=== PATIENT | male | born 1965 | race Caucasian/White ===

== ENCOUNTER 2018-06-03 14:55 | Emergency (ER) | payer OTHER, SELFPAY ==
[2018-06-03 14:55] VITALS: BP 149/93; PULSE 101; RESP 16; TEMP 36.5; O2SAT 99; BMI 36.2
--- NOTE | 2018-06-03 15:13 | ED.DCSUM_ITS ---
- ER Visit Summary Date of Service: 06/03/18 Chief Complaint: Abdominal pain with rectal bleeding History of Present Illness: The patient is a 52 M history of [place] syndrome and hypertension. Prior polypectomy. No recent colonoscopy. Patient states for a month he has had crampy and sharp abdominal pain intermittent. With rectal bleeding at times with clots. He denies being on any type of blood thinner. He denies ever having bleeding like this before. His any vomiting. He said subjectively he is felt warm. Physical Examination: Well-appearing middle-age male. No acute distress. Vital signs are stable. Afebrile. H EENT exam unremarkable. Neck nontender. Lungs clear to auscultation bilaterally. Heart regular rhythm no murmur rate about 100. Abdomen is soft. Nondistended. Normal bowel sounds. He does have left- sided abdominal tenderness. There is no rebound or guarding. No rigidity. No signs of obstruction. No hernias or masses. Both the right upper right lower quadrants are unremarkable. He is moving all 4 extremities. Neurologically is awake and alert with no focal motor deficits. Test Results: Patient is an tired laboratory workup was unremarkable. White count of 7. Hemoglobin 15. Chemistries normal normal gap and creatinine. Liver enzymes normal lipase normal PT/INR normal lactate normal CT abdomen pelvis with IV contrast only was unremarkable. There was a small amount of sigmoid diverticulosis. No acute signs of diverticulitis. Bowel and appendix appeared normal and no other acute abnormalities. Read by the radiologist. Reviewed by me. Emergency Department Course and Treatment: Ongoing GI workup. Due to the abdominal pain he will obtain a CT of the abdomen and pelvis. He will receive IV morphine and Zofran. On repeat exam at 1645 patient is doing well. He is resting comfortably. He and I went over all his test results when they all return. He is comfortable being discharged home with outpatient follow-up. He knows to return if he is feeling worse. I did stress to him that if he has rectal bleeding he should follow-up and get an outpatient colonoscopy. Treatment Plan: Follow-up with his PCP. Disposition: Discharge Impression: Acute abdominal pain with rectal bleeding of uncertain etiology This note was generated with [employer] software. It may contain incorrect words, spelling, and punctuation that were not noted in review of the chart prior to signing ED Disposition - Plan for ED Patient: Disposition: Home or Assisted Living Chief Complaint: Abd Pain Instructions: ED Abdominal Pain Unkn Cause, ED Hematochezia Stable Referrals: Hernan Rondon MD [Primary Care Provider] - Additional Instructions: Labs were normal today. Follow-up with your doctor.
--- NOTE | 2018-06-03 15:13 | CT_ITS ---
STUDY: CT ABDOMEN AND PELVIS WITH CONTRAST REASON FOR EXAM: Male, 52 years old. Left-sided abdominal pain, rectal bleeding for one month. RADIATION DOSAGE (If Supplied By Facility): CTDIvol = ( 14.50 ) mGy, DLP = ( 1100.88 ) mGycm TECHNIQUE: Transaxial images were obtained from the dome of the diaphragm to the symphysis pubis without oral contrast. 100CC ml of Isovue 300 contrast was administered. Sagittal and coronal images were reconstructed. Individualized dose optimization techniques were used for this CT. COMPARISON: None. FINDINGS: Body wall soft tissues: Tiny fat filled umbilical hernia. Osseous structures: Mild spondylosis and mild scoliosis. Inferior chest: Clear lung bases, normal distal esophagus, normal cardiac base. Hepatobiliary: Normal. Pancreas: No acute process. Spleen: Normal. Adrenal glands: Normal. Urogenital: Normal kidneys, collecting systems, ureters, urinary bladder, prostate and seminal vesicles. Pelvic floor and sidewalls and retroperitoneum: No mass or adenopathy. Vasculature: Minimal atherosclerosis. Stomach: No acute process. Small bowel and mesentery: No acute process. Large bowel: Normal appendix. There is minimal diverticulosis of the sigmoid colon with no evidence of diverticulitis. Normal rectum. Free fluid or free air: None. CT/Abdomen/Pelvis W IV Cont ONLY IMPRESSION: No acute abdominopelvic process is evident. There is sigmoid diverticulosis, mild, with no evidence of acute diverticulitis. Electronically Signed: Loyd Cherry, at 16:36 EDT Tel , Service support ,
[2018-06-03] MEDS: Ondansetron 4 MG/2 ML Vial IV (15:30)
[2018-06-03] MEDS: Morphine 4 MG/ML Syringe 6 MG IV (15:30)
[2018-06-03] MEDS: 0.9% Normal Saline 1,000 ML 125 ML IV (15:30)
[2018-06-03 15:48] LABS: Absolute Neutrophil Count 4.5 X10^3/uL (2.0-7.7); Basophil# 0.07 X10^3/uL; Eosinophil# 0.27 X10^3/uL; Eosinophils% 3.8 % (0-5); Hematocrit 47.8 % (40-54); Hemoglobin 15.6 g/dl (13.0-16.5); Lymphocyte % 25.6 % (19-41); Mean Corp Hgb Conc 32.6 g/gl (32-36); Mean Corpuscular Hgb 29.7 pg (27.0-32.0); Mean Corpuscular Volume 90.9 fL (80-94); Mean Platelet Vol. 9.2 fl (6.2-12.0); Monocyte# 0.34 X10^3/uL; Monocyte% 4.8 % (0-10); Neutrophil # 4.52 X10^3/uL (2.7-7.7); Neutrophil % 64.5 % (47-70); Platelet Count 188 K/mm3 (150-450); RBC Distribution Width CV 13.5 % (11.6-14.6); RBC Distribution Width SD 44.1 fl (35.1-43.9); Red Blood Count 5.26 M/mm3 (4.6-6.2)
[2018-06-03 15:49] LABS: POSITIVE COUNT NO; POSITIVE DIFFERENTIAL NO; POSITIVE MORPHOLOGY NO
[2018-06-03 15:58] LABS: AST(SGOT) 15 U/L (15-37); Alanine Aminotransfer ALT/SGPT 29 U/L (16-61); Albumin, Serum 3.8 g/dL (3.2-5.0); Alkaline Phosphatase 100 U/L (45-117); Anion Gap 4 (5-15); BUN 14 mg/dL (7-18); BUN/Creat Ratio 14.3 RATIO (10-20); Bilirubin, Direct 0.09 mg/dL (0.00-0.30); Calcium,Total 8.8 mg/dL (8.5-10.1); Chloride 104 mmol/L (98-107); Creatinine, Serum 0.98 mg/dL (0.70-1.30); EST Glomerular Filtration Rate 86 mL/min (>60); Est Glom Filt Rate - Afr Amer 104 mL/min (>60); Estimated Creatinine Clearance 94.98 ml/min; Globulin 3.9 g/dL (2.2-4.2); Glucose 96 mg/dL (74-106); Lipase 269 U/L (73-393); Potassium 4.2 mmol/L (3.5-5.1); Protein, Total 7.7 g/dL (6.4-8.2); Sodium Level 139 mmol/L (136-145)
[2018-06-03 16:01] LABS: International Normalized Ratio 0.9; Prothrombin Time (Protime)PT. 12.3 SECONDS (11.7-14.9)
[2018-06-03 16:03] LABS: Lactic Acid 1.3 mmol/L (0.4-2.0)
--- NOTE | 2018-06-03 16:34 | ED.DEP ---
ED Disposition - Plan for ED Patient: Disposition: Home or Assisted Living Chief Complaint: Abd Pain Instructions: ED Abdominal Pain Unkn Cause, ED Hematochezia Stable Referrals: Hernan Rondon MD [Primary Care Provider] - Additional Instructions: Labs were normal today. Follow-up with your doctor. May need an outpatient colonoscopy. Return to the ER if feeling a lot worse.
[2018-06-03 17:09] VITALS: BP 134/46; PULSE 75; PULSE 82; RESP 16; O2SAT 98
== END 2018-06-03 17:10 | disposition home or self-care (01) ==
PROVIDERS: Emergency Provider Emergency Medicine; Family Provider Family Medicine; PCP Family Medicine
DX: R10.9 Unspecified abdominal pain (principal); K62.5 Hemorrhage of anus and rectum; I10 Essential (primary) hypertension; E78.00 Pure hypercholesterolemia, unspecified; Z72.0 Tobacco use; K57.30 Diverticulosis of large intestine without perforation or abscess without bleeding
CPT/HCPCS: 74177; 80048; 80076; 83605; 83690; 85025; 85610; 86850; 86900; 86901; 96361; 96374; 96375; 99283; J7030; Q9967; A4216; J2405

== ENCOUNTER 2018-09-22 15:16 | Emergency (ER) | payer OTHER, SELFPAY ==
[2018-09-22 15:17] VITALS: BP 144/89; PULSE 71; RESP 18; TEMP 35.9; O2SAT 98; BMI 39.3
--- NOTE | 2018-09-22 15:25 | CT_ITS ---
STUDY: CT ABDOMEN AND PELVIS WITHOUT CONTRAST REASON FOR EXAM: Male, 53 years old. Left upper quadrant pain RADIATION DOSAGE (If Supplied By Facility): CTDIvol = ( 16.75 ) mGy, DLP = ( 1290.13 ) mGycm TECHNIQUE: Transaxial images were obtained from the dome of the diaphragm to the symphysis pubis without oral contrast, and without intravenous contrast. Sagittal and coronal images were reconstructed. Individualized dose optimization techniques were used for this CT. COMPARISON: 06/03/2018 FINDINGS: The visualized lung bases are unremarkable. The visualized portions of the heart are within normal limits. Normal liver. Normal gallbladder and extrahepatic biliary system. Normal spleen. Normal pancreas. There is a 1.2 cm accessory spleen. Normal bilateral adrenal glands. Normal right kidney. Normal left kidney. Normal visualized stomach. Normal small intestine. There are multiple colonic diverticula consistent with diverticulosis. The appendix is visualized and appears normal. Appendix best seen on coronal recon image 51. Normal abdominal aorta. Normal inferior vena cava. Normal retroperitoneum. Normal urinary bladder. Normal abdominal wall. Mild degenerative bony changes CT/Abdomen/Pelvis W IV Cont ONLY IMPRESSION: No suspicious solid organ abnormality Colonic diverticulosis, no CT evidence of acute diverticulitis No CT evidence of an acute inflammatory process, normal appendix visualized No free intraperitoneal fluid, air, or suspicious adenopathy Electronically Signed: Murali Bahena MD at 16:58 EST , Service support ,
--- NOTE | 2018-09-22 15:26 | ED.VISSUMM ---
- ER Visit Summary Date of Service: 09/22/18 Chief Complaint: Abdominal pain History of Present Illness: The patient is a 53 M presents to the emergency department abdominal pain. Patient states he had symptoms for the past 3 days. He states initially, he felt what was like gas pains. He states that over the past 24 hours, the pain is worsened. He describes a sharp, stabbing pain in his left lower quadrant. He does have a history of diverticulitis and states this feels similar. He has no history of prior abdominal surgery. He has had colonoscopy and polyp removal. He had no blood per rectum. He does not think he had fever but does admit to chills. He is been taking ibuprofen with little improvement of his pain. Physical Examination: Vital signs reviewed General: Well-nourished, well-developed Head: Normocephalic, atraumatic Eyes: Pupils equal and reactive, extraocular muscles intact Neck, supple, no lymphadenopathy Heart: Regular rate and rhythm Respiratory: No distress, clear bilaterally Abdomen: Soft, tender in the left lower quadrant, nondistended, no peritoneal signs Back: Nontender Extremities: Nontender, no edema, no cords Skin: Normal color no rash Neuro: Alert and oriented, no focal or lateralizing deficits Test Results: [] Emergency Department Course and Treatment: Clinically, the patient's symptoms do seem most consistent with acute diverticulitis. IV was established. He was given analgesics with improvement of his pain. Screening labs are unremarkable. CT of the abdomen and pelvis shows diverticulosis with no definitive evidence of acute diverticulitis. His labs are unremarkable. Clinically, will change in bowel habits, pain in his left lower quadrant, and history of the same I do feel that the most prudent thing would be to treat him for acute diverticulitis. The patient is comfortable with this plan of care. He will be given a short course of analgesics, Cipro, and Flagyl. He was counseled on concerning symptoms and reasons to return. He will be discharged home. Treatment Plan: [] Disposition: Discharge Impression: Acute diverticulitis This note was generated with [employer] dictation software. It may contain incorrect words, spelling, and punctuation that were not noted in review of the chart prior to signing ED Disposition - Plan for ED Patient: Instructions: ED Diverticulitis Prescriptions: Hydrocodone Bitart/Apap 5-325 [[place] 5MG-325MG] 1 tab PO Q6H PRN PRN 3 Days #10 tab PRN Reason: Pain Metronidazole [Flagyl] 500 mg PO Q8H #21 tab Ciprofloxacin [Cipro] 500 mg PO BID #14 tab Referrals: Hernan Rondon MD [Primary Care Provider] -
[2018-09-22] MEDS: 0.9% Normal Saline 1,000 ML 1000 ML IV (15:33)
[2018-09-22] MEDS: Morphine 4 MG/ML Syringe IV (15:33)
[2018-09-22] MEDS: Ondansetron 4 MG/2 ML Vial IV (15:33)
[2018-09-22 15:38] LABS: Absolute Lymphocyte Count 2.31 X10^3/ul (0.83-4.51); Absolute Neutrophil Count 3.5 X10^3/uL (2.0-7.7); Basophil# 0.04 X10^3/uL; Basophil% 0.6 % (0-1); Eosinophil# 0.26 X10^3/uL; Hematocrit 45.2 % (40-54); Hemoglobin 14.9 g/dl (13.0-16.5); Lymphocyte # 2.31 X10^3/ul (4.0); Lymphocyte % 35.2 % (19-41); Mean Corpuscular Hgb 29.3 pg (27.0-32.0); Mean Corpuscular Volume 88.8 fL (80-94); Monocyte% 6.1 % (0-10); Neutrophil # 3.53 X10^3/uL (2.7-7.7); Neutrophil % 53.8 % (47-70); Platelet Count 190 K/mm3 (150-450); RBC Distribution Width SD 45.1 fl (35.1-43.9); Red Blood Count 5.09 M/mm3 (4.6-6.2); White Blood Count 6.6 K/mm3 (4.4-11.0)
[2018-09-22 15:39] LABS: POSITIVE COUNT NO; POSITIVE DIFFERENTIAL NO; POSITIVE MORPHOLOGY NO
[2018-09-22 15:57] LABS: ALB/GLOB Ratio 1.2 RATIO (0.9-2.4); AST(SGOT) 17 U/L (15-37); Alanine Aminotransfer ALT/SGPT 27 U/L (16-61); Albumin, Serum 4.3 g/dL (3.2-5.0); Alkaline Phosphatase 91 U/L (45-117); Anion Gap 10 (5-15); BUN 14 mg/dL (7-18); BUN/Creat Ratio 12.8 RATIO (10-20); Calcium,Total 8.8 mg/dL (8.5-10.1); Chloride 106 mmol/L (98-107); Creatinine, Serum 1.09 mg/dL (0.70-1.30); EST Glomerular Filtration Rate 75 mL/min (>60); Est Glom Filt Rate - Afr Amer 91 mL/min (>60); Estimated Creatinine Clearance 81.86 ml/min; Globulin 3.5 g/dL (2.2-4.2); Glucose 104 mg/dL (74-106); Potassium 4.2 mmol/L (3.5-5.1); Protein, Total 7.8 g/dL (6.4-8.2); Sodium Level 142 mmol/L (136-145)
[2018-09-22] MEDS: HYDROmorphone 1 MG/ML Syringe IV (16:19)
[2018-09-22 16:36] LABS: Bacteria 0 SEEN /hpf (None Seen); Mucous, Urine 0 SEEN /hpf (<or=2+); Red Blood Cells-Urine 0 SEEN /hpf (0-5); Squamous Epithelial Cells - UA 0 SEEN /hpf (0-5); White Blood Cells 0 SEEN /hpf (0-5)
[2018-09-22 16:40] LABS: Color, Urine Yellow (Yellow); Glucose, Dipstick Normal (Normal); Ketone-Dipstick Negative (Negative); Leukocyte Esterase-Dipstick Negative /ul (Negative); Nitrite-Dipstick Negative (Negative); Occult Blood-Urine Negative /ul (Negative); Protein-Dipstick Negative (Negative); Urine Bilirubin Dipstick Negative (Negative); Urine Clarity Clear (Clear); Urine Urobilinogen Normal (Normal)
[2018-09-22 17:14] VITALS: BP 159/93; PULSE 60; RESP 18; O2SAT 100
== END 2018-09-22 17:16 | disposition home or self-care (01) ==
PROVIDERS: Emergency Provider Emergency Medicine; Family Provider Family Medicine; PCP Family Medicine
DX: K57.92 Diverticulitis of intestine, part unspecified, without perforation or abscess without bleeding (principal); I10 Essential (primary) hypertension; J44.9 Chronic obstructive pulmonary disease, unspecified; Z79.899 Other long term (current) drug therapy; Z72.0 Tobacco use
CPT/HCPCS: 74177; 80053; 81001; 85025; 96361; 96374; 96375; 99283; J7030; Q9967; A4216; J2405